=== PATIENT | male | born 1985 | race Caucasian/White ===

== ENCOUNTER 2016-12-04 11:08 | Inpatient (IN) | payer BC ==
[~2016-12-04 11:08] MED LIST: ADDERALL XR 3030 M1 PO
[2016-12-06] MEDS ORDERED: CYCLOBENZAPRINE5 M1 PO (10:39)
[2016-12-06] MEDS ORDERED: NORCO 5-325 TA1 EACH PO (10:41)
[2016-12-06] MEDS ORDERED: TYLENOL325 M2 PO (10:42)
[2016-12-06] MEDS ORDERED: SENOKOT-S TABL1 EACH PO (10:45)
[2016-12-06] MEDS ORDERED: ZOFRAN ODT4 MG PO (10:46)
== END 2016-12-06 11:40 | DRG 27 ==
LOC: SHSB 11:08 → ORE 12:41 → PACU 15:38 → 5EB 16:55
PROVIDERS: ADMIT Neurological Surgery
PROC: 00N00ZZ Release Brain, Open Approach (ICD-10-PCS; principal; 2016-12-04)
PROC: 00NW0ZZ Release Cervical Spinal Cord, Open Approach (ICD-10-PCS; 2016-12-04)
DX: G93.5 Compression of brain (principal)
CPT/HCPCS: J0690; J1100; J1170; J2175; J2250; J2405; J2800; J3010; J3370; J7040